=== PATIENT | female | born 1980 | race African-American/Black ===

== ENCOUNTER 2016-12-31 22:36 | Emergency (ER) | payer MEDICAID, SELFPAY | END 2017-01-01 00:47 | disposition home or self-care (01) | LOC: ERS 22:36 | DX: Z76.0 Encounter for issue of repeat prescription (principal); I10 Essential (primary) hypertension; Z79.899 Other long term (current) drug therapy | CPT/HCPCS: 99283 ==

== ENCOUNTER 2017-04-01 17:34 | Emergency (ER) | payer SELFPAY ==
[2017-04-01] MEDS ORDERED: Lorazepam 2 MG/ML VIAL ONE ×2 (18:34→19:49)
[2017-04-01 18:45] LABS: #Basophils 0.1 thou/uL (0.0-0.2); #Eosinphils 0.1 thou/uL (0.0-0.7); #Lymphocytes 2.5 thou/uL (1.20-3.40); #Monocytes 0.9 thou/uL (0.11-0.59); #Neutrophils 9.1 thou/uL (1.40-6.50); %Basophils 0.4 % (0.0-1.0); %Eosinophils 0.7 % (0.0-10.0); %Lymphocytes 19.9 % (21.0-51.0); %Monocytes 7.1 % (0.0-10.0); %Neutrophils 71.8 % (42.0-75.0); Hemoglobin 15.8 g/dL (12.0-16.0); Mean Corpuscular HGB CONC 31.8 g/dL (32.0-36.0); Mean Corpuscular Hemoglobin 27.8 pg (27.0-31.0); Mean Corpuscular Volume 87.3 fl (81.0-99.0); Mean Platelet Volume 6.6 fL (7.4-10.4); Platelet Count 361 thou/uL (130-400); RBC Distribution Width 13.3 % (11.5-14.5); White Blood Cell (WBC) Count 12.7 thou/uL (4.8-10.8)
[2017-04-01 19:00] LABS: BHCG - Serum Negative (NEGATIVE); Pregs Control Background? CLEAR/WHITE (CLR/WHITE); Pregs Control Bar Appear? YES (CONTROL BAR)
[2017-04-01 19:04] LABS: ALT (SGPT) 10 U/L (8-55); AST (SGOT) 17 U/L (5-34); Albumin 4.1 g/dL (3.5-5.0); Alkaline Phosphatase 91 U/L (40-150); Anion Gap 14 mmol/L (10-20); BUN (Urea Nitrogen) 11 mg/dL (7.0-18.7); Bilirubin, Total 0.2 mg/dL (0.2-1.2); CK (CPK) 106 U/L (29-168); Calc. Creatinine Clearance 0 mL/min (70-130); Calcium 9.4 mg/dL (7.8-10.44); Carbon Dioxide 22 mmol/L (22-29); Chloride 106 mmol/L (98-107); Estimated GFR-MDRD Greater than 90; Globulin 3.8 g/dL (2.4-3.5); Glucose 89 mg/dL (70-105); Potassium 3.9 mmol/L (3.5-5.1); Protein, Total 7.9 g/dL (6.0-8.3); Sodium 138 mmol/L (136-145)
[2017-04-01 19:08] LABS: CKMB 0.8 ng/mL (0-6.6); Troponin I Less than 0.010 ng/mL (< 0.028)
[2017-04-01] MEDS ORDERED: Metoprolol Tartrate 25 MG TAB ONE (19:49)
[2017-04-01] MEDS ORDERED: Ketorolac Tromethamine 30 MG/ML VIAL ONE (20:28)
--- NOTE | 2017-04-01 20:28 | RAD ---
PORTABLE CHEST: Date: 04-01-17 Provided Clinical History: Hypertension. Dyspnea. FINDINGS: Cardiac silhouette appears enlarged. Lungs appear clear. No pleural fluid or pneumothorax apparent. IMPRESSION: Cardiomegaly without evidence for an acute cardiopulmonary process. POS: [facility]
--- NOTE | 2017-04-01 20:34 | CT ---
CT BRAIN: Date: 04-01-17 Provided Clinical History: Headache. FINDINGS: Ventricular system appears normal in size and morphology. There is no evidence for intracranial hemor rhage or mass effect. The extracranial soft tissues and osseous structures demonstrate an unremarkabl e CT appearance. IMPRESSION: No evidence of intracranial hemorrhage or mass effect. POS: [facility]
== END 2017-04-01 21:38 | disposition home or self-care (01) ==
LOC: ERS 17:34
DX: F41.9 Anxiety disorder, unspecified (principal); I10 Essential (primary) hypertension; Z79.899 Other long term (current) drug therapy
CPT/HCPCS: 36415; 70450; 71045; 80053; 82550; 82553; 84484; 84703; 85025; 93005; 96361; 96374; 96375; 96376; J1885; J2060

== ENCOUNTER 2017-07-07 01:46 | Emergency (ER) | payer SELFPAY ==
[2017-07-07] MEDS ORDERED: cloNIDine 0.1 MG TAB ONE (02:16)
[2017-07-07] MEDS ORDERED: Adacel (T-DAP) 0.5 ML VIAL ONE (02:35)
== END 2017-07-07 03:05 | disposition home or self-care (01) ==
LOC: ERS 01:46
DX: S00.01XA Abrasion of scalp, initial encounter (principal); I10 Essential (primary) hypertension; Z79.899 Other long term (current) drug therapy; W22.8XXA Striking against or struck by other objects, initial encounter
CPT/HCPCS: 90471; 90715

== ENCOUNTER 2017-09-23 17:15 | Emergency (ER) | payer SELFPAY ==
--- NOTE | 2017-09-23 18:06 | RAD ---
RIGHT FOREARM TWO VIEWS: HISTORY: Right forearm pain. COMPARISON: None. FINDINGS: Two views of the right forearm show no evidence of acute fracture or dislocation. No degenerative ch anges are seen. No soft tissue swelling is present. IMPRESSION: Unremarkable exam. POS: [facility]
--- NOTE | 2017-09-23 18:07 | RAD ---
RIGHT WRIST THREE VIEWS: HISTORY: Right wrist pain. COMPARISON: None. FINDINGS: Three views of the right wrist show no evidence of acute fracture or dislocation. No degenerative ch anges are seen. Mild soft tissue swelling is seen. IMPRESSION: No evidence of acute osseous abnormality. POS: [facility]
== END 2017-09-23 18:47 | disposition home or self-care (01) ==
LOC: ERS 17:15
DX: M79.631 Pain in right forearm (principal); M25.531 Pain in right wrist; I10 Essential (primary) hypertension; F41.9 Anxiety disorder, unspecified; F32.9 Major depressive disorder, single episode, unspecified; X50.1XXA Overexertion from prolonged static or awkward postures, initial encounter

== ENCOUNTER 2017-12-14 19:46 | Emergency (ER) | payer SELFPAY ==
[2017-12-14 20:22] LABS: #Basophils 0.1 thou/uL (0.0-0.2); #Eosinphils 0.2 thou/uL (0.0-0.7); #Lymphocytes 2.8 thou/uL (1.20-3.40); #Monocytes 0.8 thou/uL (0.11-0.59); #Neutrophils 6.6 thou/uL (1.40-6.50); %Basophils 1.1 % (0.0-1.0); %Eosinophils 1.8 % (0.0-10.0); %Lymphocytes 26.4 % (21.0-51.0); %Monocytes 7.6 % (0.0-10.0); %Neutrophils 63.1 % (42.0-75.0); Hemoglobin 16.4 g/dL (12.0-16.0); Mean Corpuscular Hemoglobin 28.6 pg (27.0-31.0); Mean Corpuscular Volume 86.5 fL (78.0-98.0); Mean Platelet Volume 7.5 fL (7.4-10.4); Platelet Count 274 thou/uL (130-400); RBC Distribution Width 13.7 % (11.5-14.5); Red Blood Cell (RBC) Count 5.74 mill/uL (4.20-5.40); White Blood Cell (WBC) Count 10.5 thou/uL (4.8-10.8)
[2017-12-14 20:42] LABS: ALT (SGPT) 10 U/L (8-55); AST (SGOT) 12 U/L (5-34); Albumin 3.4 g/dL (3.5-5.0); Alkaline Phosphatase 71 U/L (40-150); Anion Gap 13 mmol/L (10-20); BUN (Urea Nitrogen) 16 mg/dL (7.0-18.7); Bilirubin, Total 0.2 mg/dL (0.2-1.2); Calc. Creatinine Clearance 0 mL/min (70-130); Calcium 8.5 mg/dL (7.8-10.44); Carbon Dioxide 21 mmol/L (22-29); Chloride 106 mmol/L (98-107); Estimated GFR-MDRD 53; Globulin 2.9 g/dL (2.4-3.5); Glucose 200 mg/dL (70-105); Protein, Total 6.3 g/dL (6.0-8.3); Sodium 137 mmol/L (136-145)
--- NOTE | 2017-12-14 21:11 | RAD ---
FRONTAL RADIOGRAPH CHEST 12/14/17 COMPARISON: 04/01/17 HISTORY: Vomiting and diarrhea. Chest pain and fever. FINDINGS: Lungs are clear. Heart and mediastinal contours are unremarkable. IMPRESSION: No acute findings. POS: [facility]
[2017-12-14 21:54] LABS: Bilirubin Small (Negative); Blood, Urine Moderate (Negative); Clarity TURBID (Clear); Glucose, Urine (Dipstick) Negative (Negative); Leukocyte Moderate (Negative); Nitrite Negative (Negative); Protein, Urine (Dipstick) 100 mg/dL (Neg-Trace); Specific Gravity, Urine 1.041 (1.002-1.036); pH, Urine 5.5 (5.0-9.0)
[2017-12-14 21:55] LABS: RBC/HPF 0-3 HPF (0-3); Squamous Epithelial 21-50 HPF (0-3)
[2017-12-14 21:57] LABS: Pathc Cast-AUWi Flag 9.74 (0-2.49); Yeast-AUWi Flag 35.1 (0-25.0)
[2017-12-14 22:04] LABS: Hyaline Casts/LPF 4-6 HYALINE CAST LPF (0-3 Hyaline)
[2017-12-14 22:05] LABS: Bacteria/HPF 1+ HPF (None Seen)
[2017-12-14] MEDS ORDERED: Ciprofloxacin 500 MG TAB ONE (22:25)
[2017-12-14] MEDS ORDERED: Ondansetron HCl/PF 4 MG/2 ML Vial ONE (22:26)
[2017-12-14] MEDS ORDERED: Ketorolac Tromethamine 30 MG/ML VIAL ONE (22:26)
== END 2017-12-14 23:20 | disposition home or self-care (01) ==
LOC: ERS 19:46
DX: N30.00 Acute cystitis without hematuria (principal); I10 Essential (primary) hypertension; F41.9 Anxiety disorder, unspecified; F32.9 Major depressive disorder, single episode, unspecified
CPT/HCPCS: 36415; 71045; 80053; 81003; 81015; 85025; 87086; 87804; 93005; 96361; 96374; 96375; J1885; J2405

== ENCOUNTER 2017-12-29 13:37 | Emergency (ER) | payer SELFPAY ==
[2017-12-29] MEDS ORDERED: Bupivacaine 0.5% 10 ML VIAL ONE (14:06)
[2017-12-29] MEDS ORDERED: HYDROcodone/Acetaminophen 10/325 mg Tablet ONE (14:46)
[2017-12-29] MEDS ORDERED: Ibuprofen 200 MG TAB ONE (14:46)
[2017-12-29] MEDS ORDERED: HYDROcodone/Acetaminophen 5/325 mg Tablet ONE (18:42)
== END 2017-12-29 14:52 | disposition home or self-care (01) ==
LOC: ERS 13:37
DX: K08.89 Other specified disorders of teeth and supporting structures (principal); F41.9 Anxiety disorder, unspecified; F32.9 Major depressive disorder, single episode, unspecified; F17.210 Nicotine dependence, cigarettes, uncomplicated
CPT/HCPCS: 64400; J3490

== ENCOUNTER 2018-07-27 00:21 | Emergency (ER) | payer SELFPAY ==
[2018-07-27 00:51] LABS: #Basophils 0.1 thou/uL (0.0-0.2); #Eosinphils 0.1 thou/uL (0.0-0.7); #Lymphocytes 2.5 thou/uL (1.20-3.40); #Monocytes 1.2 thou/uL (0.11-0.59); #Neutrophils 7.5 thou/uL (1.40-6.50); %Basophils 0.7 % (0.0-1.0); %Eosinophils 1.2 % (0.0-10.0); %Lymphocytes 21.5 % (21.0-51.0); %Monocytes 10.6 % (0.0-10.0); Hemoglobin 12.9 g/dL (12.0-16.0); Mean Corpuscular HGB CONC 32.6 g/dL (32.0-36.0); Mean Corpuscular Hemoglobin 28.6 pg (27.0-31.0); Mean Corpuscular Volume 87.7 fL (78.0-98.0); Mean Platelet Volume 6.7 fL (7.4-10.4); Platelet Count 319 thou/uL (130-400); RBC Distribution Width 14.4 % (11.5-14.5); Red Blood Cell (RBC) Count 4.52 mill/uL (4.20-5.40); White Blood Cell (WBC) Count 11.4 thou/uL (4.8-10.8)
[2018-07-27] MEDS ORDERED: Ondansetron PF 4 MG/2 ML Vial ONE (01:07)
[2018-07-27] MEDS ORDERED: Morphine 4 MG/ML VIAL ONE (01:07)
[2018-07-27 01:09] LABS: ALT (SGPT) 10 U/L (8-55); AST (SGOT) 17 U/L (5-34); Albumin 3.9 g/dL (3.5-5.0); Alkaline Phosphatase 87 U/L (40-150); Anion Gap 13 mmol/L (10-20); BUN (Urea Nitrogen) 25 mg/dL (7.0-18.7); Bilirubin, Total 0.5 mg/dL (0.2-1.2); Calc. Creatinine Clearance 0 mL/min (70-130); Calcium 9.2 mg/dL (7.8-10.44); Carbon Dioxide 22 mmol/L (22-29); Chloride 107 mmol/L (98-107); Estimated GFR-MDRD 48; Globulin 3.3 g/dL (2.4-3.5); Glucose 86 mg/dL (70-105); Lipase 21 U/L (8-78); Potassium 3.6 mmol/L (3.5-5.1); Protein, Total 7.2 g/dL (6.0-8.3); Sodium 138 mmol/L (136-145)
[2018-07-27 01:10] LABS: BHCG - Serum Negative (NEGATIVE); Pregs Control Background? CLEAR/WHITE (CLR/WHITE); Pregs Control Bar Appear? YES (CONTROL BAR)
[2018-07-27] MEDS ORDERED: Metoclopramide HCl 10 MG TAB ONE (02:18)
[2018-07-27 02:41] LABS: Bilirubin Negative (Negative); Blood, Urine Large (Negative); Clarity CLEAR (Clear); Glucose, Urine (Dipstick) Negative (Negative); Leukocyte Negative (Negative); Nitrite Negative (Negative); Protein, Urine (Dipstick) Negative (Neg-Trace); Specific Gravity, Urine 1.023 (1.002-1.036); pH, Urine 6.5 (5.0-9.0)
[2018-07-27 02:43] LABS: Bacteria/HPF None Seen HPF (None Seen); Hyaline Casts/LPF 0-3 HYALINE CAST LPF (0-3 Hyaline); Pathc Cast-AUWi Flag 0.68 (0-2.49); RBC/HPF GREATER THAN 50-TNTC HPF (0-3); Squamous Epithelial 0-3 HPF (0-3); WBC/HPF 0-3 HPF (0-3)
--- NOTE | 2018-07-27 09:13 | RAD ---
PORTABLE CHEST: HISTORY: Cough. FINDINGS: Lungs appear clear. Heart and mediastinum unremarkable. IMPRESSION: No acute finding. POS: [facility]
[2018-07-27] MEDS ORDERED: ISOVUE-370 76%-LOCM 1 ML ONE (11:16)
--- NOTE | 2018-07-27 13:25 | CT ---
PRELIMINARY REPORT/[facility]/EMERGENTY AFTER-HOURS PROCEDURE CT Abdomen and Pelvis With Contrast EXAM DATE/TIME: 07/27/2018 1:18 AM CLINICAL HISTORY: 37 years old, female; Abdominal pain; Prior surgery; Patient HX: Er 3. 37yo F with feeling nauseated for the past 2-3 days, and epigastric pain starting today. No fevers/chills, no vomiting, no constipa tion/diarrhea. Patient has had nasal congestion/cough for the past 2 weeks as well. Surgical history of cholecystectomy TECHNIQUE: Imaging protocol: Axial computed tomography images of the abdomen and pelvis with intravenous contras t. Coronal reformatted images were created and reviewed. COMPARISON: No relevant prior studies available. FINDINGS: ABDOMEN: Liver: No acute findings. No mass. Gallbladder and bile ducts: Prior cholecystectomy. Pancreas: No acute findings. No mass. No ductal dilation. Spleen: No acute findings. No mass. Adrenals: No acute findings. No mass. Kidneys and ureters: No acute findings. No mass. No hydronephrosis. Stomach and bowel: No evidence of bowel obstruction. Diverticulosis. Appendix: No evidence of appendicitis. PELVIS: Bladder: No acute findings. Reproductive: Low-lying IUD. ABDOMEN and PELVIS: Intraperitoneal space: No free air. No significant fluid collection. Bones/joints: No acute fracture. Soft tissues: Small fat-containing ventral hernias. Vasculature: No acute findings. No abdominal aortic aneurysm. Lymph nodes: No significant lymphadenopathy. IMPRESSION: No acute findings. Low-lying intrauterine device. Thank you for allowing us to participate in the care of your patient. Dictated and Authenticated by: Vickey Aaron MD 07/27/2018 2:16 AM Central Time ([place] & [place]) FINAL REPORT CT ABDOMEN AND PELVIS WITH IV CONTRAST: No acute intraabdominal process identified. Low-lying IUD which does not appear adequately positione d within the endometrial cavity. There is a small anterior abdominal wall hernia with a small hernia sac seen in the subcutaneous tiss ues. This is an incidental finding and was not mentioned on preliminary report. I am in agreement with the preliminary report. POS: [facility]
== END 2018-07-27 05:21 | disposition home or self-care (01) ==
LOC: ERS 00:21
DX: N17.9 Acute kidney failure, unspecified (principal); I10 Essential (primary) hypertension; F17.210 Nicotine dependence, cigarettes, uncomplicated
CPT/HCPCS: 36415; 71045; 74177; 80053; 81003; 81015; 83690; 84484; 84703; 85025; 93005; 94760; 96361; 96374; 96375; J2270; J2405; J8597; Q9966